=== PATIENT | female | born 1985 | race Caucasian/White ===

== ENCOUNTER 2016-06-24 09:13 | Emergency (ER) | payer MEDICAID ==
[~2016-06-24] VITALS: Ht 152.4 cm; Wt 53.0 kg
[~2016-06-24 09:13] MED LIST: CIPR500T4 PO; LEXA10TA PO; QUET1TAB65 PO; TRAZ100 PO
[2016-06-24 09:15] VITALS: BP 110/77; PULSE 96; RESP 16; TEMP 98.1; O2SAT 98
--- NOTE | 2016-06-24 09:43 | PD ---
HPI Chief Complaint: Related Problem Time Seen by Provider: 09:43 Travel History International Travel<30 days: No Contact w/Intl Traveler<30days: No Traveled to known affect area: No History of Present Illness HPI 31-year-old female coming in with history of recent diagnosis of estimated to be 5 weeks. Patient was seen 2 days ago in the women's clinic and diagnosed with . She was given vitamins. She states she took one and then felt weak in the legs and fell backwards. Patient states she has had some spotting this morning, with increasing vaginal bleeding this morning. Patient has some mild lower abdominal cramping this morning as well. She denies fever, chills, nausea, vomiting, or diarrhea. Patient is a known B positive blood type. Patient is allergic to Augmentin and Bactrim. PFSH Past Medical History Autoimmune Disease: Yes (LEUKEMIA) Bipolar Disorder: Yes Depression: Yes Cancer: Yes (LEUKEMIA & CERVICAL CANCER) Diabetes: No Diminished Hearing: No Genitourinary: Yes (UTERINE FIBROIDS, OVARIAN CYSTS) Hepatitis: Yes (C) Immunizations Current: Yes ?: LMP: 05/19/16 : 02 Miscarriage: 1 Past Surgical History Section: Yes Gynecologic Surgery: Yes (CERVICAL TISSUE REMOVAL) Social History Alcohol Use: Yes (EVERY OTHER MONTH) Tobacco Use: Yes (/2 PPD) Substance Use: Yes (IV DILAUDID/METH; PRESCRIPTION PAIN MEDS) Allergies-Medications (Allergen,Severity, Reaction): Coded Allergies: Bactrim (Verified Allergy, Severe, SKIN GEORGE, 06/24/16) Augmentin (Verified Allergy, Intermediate, EXCORIATES ANUS, 06/24/16) Reported Meds & Prescriptions Reported Meds & Active Scripts Active No Active Prescriptions or Reported Medications Physical Exam Narrative GENERAL: Patient is tearful but in no acute distress. SKIN: Warm and dry. Normal color. Normal turgor. HEAD: Atraumatic. Normocephalic. EYES: Pupils equal and round. No scleral icterus. No injection or drainage. ENT: No nasal bleeding or discharge. Mucous membranes pink and moist. NECK: Trachea midline. No JVD. CARDIOVASCULAR: Regular rate and rhythm. RESPIRATORY: No accessory muscle use. Clear to auscultation. Breath sounds equal bilaterally. GASTROINTESTINAL: Abdomen soft, non-tender, nondistended. Hepatic and splenic margins not palpable. No CVA tenderness. Pelvic exam deferred. Ultrasound ordered. MUSCULOSKELETAL: Extremities without clubbing, cyanosis, or edema. No obvious deformities. NEUROLOGICAL: Awake and alert. No obvious cranial nerve deficits. Motor grossly within normal limits. Five out of 5 muscle strength in the arms and legs. Normal speech. PSYCHIATRIC: Appropriate mood and affect; insight and judgment normal. Data Data Last Documented VS Vital Signs Date Time Temp Pulse Resp B/P Pulse Ox O2 Delivery O2 Flow Rate FiO2 06/24/16 10:40 18 06/24/16 09:15 98.1 96 110/77 98 Orders Beta Hcg (Quant/Titer) (06/24/16 11:20) Complete Blood Count With Diff (06/24/16 11:20) Basic Metabolic Panel (Bmp) (06/24/16 11:20) Us Pelvis (Ques Pr/Ect)W Trans (06/24/16 ) Labs Laboratory Tests Test 06/24/16 06/24/16 11:30 12:20 White Blood Count 10.2 TH/MM3 Red Blood Count 4.56 MIL/MM3 Hemoglobin 14.7 GM/DL Hematocrit 41.0 % Mean Corpuscular Volume 90.0 FL Mean Corpuscular Hemoglobin 32.3 PG Mean Corpuscular Hemoglobin 35.9 % Concent Red Cell Distribution Width 12.0 % Platelet Count 255 TH/MM3 Mean Platelet Volume 9.5 FL Neutrophils (%) (Auto) 69.8 % Lymphocytes (%) (Auto) 23.7 % Monocytes (%) (Auto) 5.7 % Eosinophils (%) (Auto) 0.4 % Basophils (%) (Auto) 0.4 % Neutrophils # (Auto) 7.1 TH/MM3 Lymphocytes # (Auto) 2.4 TH/MM3 Monocytes # (Auto) 0.6 TH/MM3 Eosinophils # (Auto) 0.0 TH/MM3 Basophils # (Auto) 0.0 TH/MM3 CBC Comment DIFF FINAL Differential Comment Sodium Level 140 MEQ/L Potassium Level 4.8 MEQ/L Chloride Level 110 MEQ/L Carbon Dioxide Level 22.4 MEQ/L Anion Gap 8 MEQ/L Blood Urea Nitrogen 8 MG/DL Creatinine 0.67 MG/DL Estimat Glomerular Filtration 102 ML/MIN Rate Random Glucose 103 MG/DL Calcium Level 8.8 MG/DL Human Chorionic Gonadotropin, 21 MIU/ML Quant [facility] Medical Decision Making Medical Screen Exam Complete: Yes Emergency Medical Condition: Yes Differential Diagnosis Vaginal spotting with . Threatened . Vaginal bleeding. Narrative Course Patient is medically stable at time of exam. Basic labs ordered including CBC and BMP. Patient is known to be B Pos, so RhoGAM is not warranted. Pelvic ultrasound is ordered. CBC, BMP, and hCG CBC is within normal limits. Chemistry is unremarkable. HCG is 21. Ultrasound shows no obvious intrauterine , pole or yolk sac. Per radiologist. Ultrasound results are printed and shared with the patient. Patient is recommended to have repeat hCG in several days with follow-up with her OB discussed. Patient can return to emergency Department with worsening symptoms as discussed as well. Diagnosis Primary Impression: ABNORMAL UTERINE AND VAGINAL BLEEDING, UNSPECIFIED Additional Impression: Threatened in early Referrals: [facility] Patient Instructions: General Instructions Additional Instructions: CBC is within normal limits. Chemistry is unremarkable. HCG is 21. Ultrasound shows no obvious intrauterine , pole or yolk sac. Per radiologist. Ultrasound results are printed and shared with the patient. Patient is recommended to have repeat hCG in several days with follow-up with her OB discussed. Patient can return to emergency Department with worsening symptoms as discussed as well. Med/Other Pt SpecificInfo: No Meds Exist/No RX given Scripts No Active Prescriptions or Reported Meds Disposition: DISCHARGE HOME Condition: Stable Yung Whelan Jun 24, 2016 09:43
[2016-06-24 11:54] LABS: AUTOMATED NEUTROPHIL # 7.1 TH/MM3 (1.8-7.7); BASOPHIL % 0.4 % (0.0-2.0); EOSINOPHIL % 0.4 % (0.0-4.0); HEMO FLAGS DIFF FINAL; LYMPH % 23.7 % (9.0-44.0); LYMPHOCYTE # 2.4 TH/MM3 (1.0-4.8); MEAN CORPUSCULAR HEMOGLOBIN 32.3 PG (27.0-34.0); MEAN CORPUSCULAR HGB CONC 35.9 % (32.0-36.0); MONO % 5.7 % (0.0-8.0); NEUT % 69.8 % (16.0-70.0); PLATELET COUNT 255 TH/MM3 (150-450); RED BLOOD COUNT 4.56 MIL/MM3 (4.00-5.30); WHITE BLOOD COUNT 10.2 TH/MM3 (4.0-11.0)
[2016-06-24 12:15] VITALS: BP 112/72; PULSE 84; RESP 16; O2SAT 98
[2016-06-24 12:59] LABS: BICARBONATE 22.4 MEQ/L (21.0-32.0); POTASSIUM 4.8 MEQ/L (3.5-5.1)
--- NOTE | 2016-06-24 15:04 | RADRPT ---
EXAM DATE/TIME: 06/24/2016 13:45 [place] COMPARISON: No previous studies available for comparison. INDICATIONS : Vaginal bleeding. LAB(S): Beta-hC MEDICAL HISTORY : . IV drug abuse. SURGICAL HISTORY : section. ENCOUNTER: Initial ACUITY: 2 days PAIN SCORE: 3/10 LOCATION: Bilateral pelvis MEASUREMENTS: UTERUS: 7.7 x 4.6 x 5.3 cm ENDOMETRIAL STRIPE: 7 mm RIGHT OVARY: 2.8 x 2.1 x 1.7 cm LEFT OVARY: 4.1 x 1.9 x 2.2 cm FINDINGS: There is no evidence of intrauterine gestational sac or pole. No yolk sac is noted. Different ial diagnosis for this patient with a positive test includes very early intrauterine pregna ncy, missed , and ectopic . Correlation with serial beta HCG levels is recommended. There is a tiny echogenic focus within the fundus of the uterus adjacent to the endometrium measuri ng 7 mm in greatest dimension which is nonspecific and may represent a tiny fibroid. No free fluid i s noted within the cul-de-sac. No adnexal mass is noted. There is a 2 cm cyst within the left ovary . The right ovary is unremarkable. CONCLUSION: 1. No evidence of intrauterine gestational sac, pole or yolk sac. Since this patient has a pos itive test, differential diagnosis includes very early intrauterine , missed abort ion and ectopic . Correlation with serial beta HCG level is recommended. 2. Tiny 7 mm echogenic focus within the fundus of the uterus adjacent to the endometrium which is ind eterminate. This may represent a tiny fibroid. 3. No free fluid within the cul-de-sac or adnexal mass. 4. 2 cm left ovarian cyst. Cristian Vides MD on June 24, 2016 at 14:50 Board Certified Radiologist. This report was verified electronically.
== END 2016-06-24 15:34 | disposition home or self-care (01) ==
LOC: NEPB 09:13
DX: O20.0 Threatened abortion (principal); O99.331 Smoking (tobacco) complicating pregnancy, first trimester; Z3A.01 Less than 8 weeks gestation of pregnancy; Z85.41 Personal history of malignant neoplasm of cervix uteri; Z85.6 Personal history of leukemia
CPT/HCPCS: 76700; 76817; 80048; 84702; 85025